=== PATIENT | male | born 1995 | race Caucasian/White ===

== ENCOUNTER 2017-12-15 11:06 | Emergency (ER) | payer OTHER, SELFPAY ==
[2017-12-15 11:18] VITALS: BP 104/48; PULSE 67; RESP 18; TEMP 36.8; O2SAT 96; BMI 23.0
--- NOTE | 2017-12-15 11:49 | HMH.EDUTC ---
[facility] [place] Disposition Clinical Impression: Sciatica of left side Disposition: Home, Self-Care Condition on Discharge: Good Instructions: DI for Chronic Pain -- Adult, Sciatica, DI for Back Pain With Sciatica, DI for Sciatica, Sciatica (Alternative Therapy) Additional Instructions: Take medication as prescribed Do stretches as demonstrated in [facility] today Follow up with family doctor if no improvement or worsening of symptoms in 12-48 hours Go straight to ER if you began having bowel or bladder issues Follow up with family doctor for referral to physical therapy if pain continues Prescriptions: Cyclobenzaprine HCl [Flexeril 10mg tablet] 10 mg PO TID PRN #15 tab PRN Reason: Muscle Pain Etodolac [Etodolac 200mg Cap] 200 mg PO Q6H PRN #20 cap PRN Reason: Moderate Pain Referrals: Teresa Cabezas MD [Primary Care Provider] - Forms: Work/School Release Time of Disposition: 12:04 Medical Decision Making - Medical Records Medical records reviewed: Yes: I reviewed the patient's medical records. - Eliseo Inquiry Pt receiving controlled substance: No Eliseo was queried for this patient: No Vital Signs: 12/15/17 11:18 Temperature 98.2 F Temperature Source Temporal Artery Scan Pulse Rate [Right] 67 Respiratory Rate 18 Blood Pressure [Right Arm] 104/48 Blood Pressure Mean [Right Arm] 66 Blood Pressure Source [Right Arm] Automatic Cuff Blood Pressure Position [Right Arm] Sitting 02 Sat by Pulse Oximetry 96 Oxygen Delivery Method Room Air [facility] [place] HPI - General Stated complaint: lower back pain Time Seen by Provider: 12/15/17 11:49 Mode of Arrival: Ambulatory Source of Information: Patient Limitations: No Limitations Description of Symptoms (Recalled from Triage Doc. by RN): BACK PAIN BEGAN FRIDAY, NO INJURY HEENT Symptoms (Recalled from RN notes): No Resp Symptoms (Recalled from RN notes): No Skin Symptoms (Recalled from RN notes): No MS Symptoms (Recalled from RN notes): Yes Functional Status (Recalled from RN notes): N - History of Present Illness Provider Complaint: Patient state that he has been having pain in his lower back that radiates into buttock area and down left leg State that he normally lifts weights but has not lifted all weekend since the pain started State that he has used heating pads, massage ball and rest but pain has not got any better State that pain is worsened when he moves his leg - Related Data Previous Rx's Medication Instructions Recorded Cyclobenzaprine HCl [Flexeril 10mg 10 mg PO TID PRN #15 tab 12/15/17 tablet] Etodolac [Etodolac 200mg Cap] 200 mg PO Q6H PRN #20 cap 12/15/17 Allergies Allergy/AdvReac Type Severity Reaction Status Date / Time No Known Allergies Allergy Verified 12/15/17 11:21 - Worker's Comp Is this a Worker's Comp case?: No [facility] History I have reviewed the patient's past medical history: Yes - Social History Alcohol Intake: never - Psychiatric History Expresses thoughts of harming self/others: None Suicide Plan Description: No Plan ROS Obtained: Yes All systems reviewed & no additional complaints - Musculoskeletal Musculoskeletal: Reports back pain, Reports other (Pain in left lower back that radiates down buttock area into leg) Physical Exam - General General appearance: alert, in no apparent distress - Respiratory Respiratory exam: Present: normal lung sounds bilaterally. Absent: respiratory distress - Cardiovascular Cardiovascular exam: Present: regular rate, normal rhythm. Absent: JVD - Back Exam Back exam: Present: normal inspection, sciatic notch tenderness (L), other Comment: Pain in left lower back area radiating down left buttock into leg consistant with that described with sciatica. Denies known injury state that he woke up with the pain on Friday and has tried heating pad, massage ball and rest but did not help State that pain is worsened when he moves his leg Denies having trouble with bowel or
--- NOTE | 2017-12-15 11:55 | ED_ITS ---
[facility] [place] Disposition Clinical Impression: Sciatica of left side Disposition: Home, Self-Care Condition on Discharge: Good Instructions: DI for Chronic Pain -- Adult, Sciatica, DI for Back Pain With Sciatica, DI for Sciatica, Sciatica (Alternative Therapy) Additional Instructions: Take medication as prescribed Do stretches as demonstrated in [facility] today Follow up with family doctor if no improvement or worsening of symptoms in 12- 48 hours Go straight to ER if you began having bowel or bladder issues Follow up with family doctor for referral to physical therapy if pain continues Prescriptions: Cyclobenzaprine HCl [Flexeril 10mg tablet] 10 mg PO TID PRN #15 tab PRN Reason: Muscle Pain Etodolac [Etodolac 200mg Cap] 200 mg PO Q6H PRN #20 cap PRN Reason: Moderate Pain Referrals: Teresa Cabezas MD [Primary Care Provider] - Forms: Work/School Release Time of Disposition: 12:04 Medical Decision Making - Medical Records Medical records reviewed: Yes: I reviewed the patient's medical records. - Eliseo Inquiry Pt receiving controlled substance: No Eliseo was queried for this patient: No Vital Signs: 12/15/17 11:18 Temperature 98.2 F Temperature Source Temporal Artery Scan Pulse Rate [Right] 67 Respiratory Rate 18 Blood Pressure [Right Arm] 104/48 Blood Pressure Mean [Right Arm] 66 Blood Pressure Source [Right Arm] Automatic Cuff Blood Pressure Position [Right Arm] Sitting 02 Sat by Pulse Oximetry 96 Oxygen Delivery Method Room Air [facility] [place] HPI - General Stated complaint: lower back pain Time Seen by Provider: 12/15/17 11:49 Mode of Arrival: Ambulatory Source of Information: Patient Limitations: No Limitations Description of Symptoms (Recalled from Triage Doc. by RN): BACK PAIN BEGAN FRIDAY, NO INJURY HEENT Symptoms (Recalled from RN notes): No Resp Symptoms (Recalled from RN notes): No Skin Symptoms (Recalled from RN notes): No MS Symptoms (Recalled from RN notes): Yes Functional Status (Recalled from RN notes): N - History of Present Illness Provider Complaint: Patient state that he has been having pain in his lower back that radiates into buttock area and down left leg State that he normally lifts weights but has not lifted all weekend since the pain started State that he has used heating pads, massage ball and rest but pain has not got any better State that pain is worsened when he moves his leg - Related Data Previous Rx's Medication Instructions Recorded Cyclobenzaprine HCl [Flexeril 10mg 10 mg PO TID PRN #15 tab 12/15/17 tablet] Etodolac [Etodolac 200mg Cap] 200 mg PO Q6H PRN #20 cap 12/15/17 Allergies Allergy/AdvReac Type Severity Reaction Status Date / Time No Known Allergies Allergy Verified 12/15/17 11:21 - Worker's Comp Is this a Worker's Comp case?: No [facility] History I have reviewed the patient's past medical history: Yes - Social History Alcohol Intake: never - Psychiatric History Expresses thoughts of harming self/others: None Suicide Plan Description: No Plan ROS Obtained: Yes All systems reviewed & no additional complaints - Musculoskeletal Musculoskeletal: Reports back pain, Reports other (Pain in left lower back that radiates down buttock area into leg) Physical Exam - General General appearance: alert, in no apparent distress - Respiratory
[2017-12-15 12:08] VITALS: BP 104/48; PULSE 67; RESP 18; TEMP 36.8
== END 2017-12-15 12:09 | disposition home or self-care (01) ==
PROVIDERS: Emergency Provider Nurse Practitioner; Family Provider Family Medicine; PCP Family Medicine
DX: M54.42 Lumbago with sciatica, left side (principal)
CPT/HCPCS: 96372; 99201

== ENCOUNTER 2020-06-27 09:53 | Emergency (ER) | payer BC, SELFPAY ==
[2020-06-27 10:07] VITALS: BP 121/71; PULSE 56; RESP 21; TEMP 36.8; O2SAT 98; BMI 22.4
--- NOTE | 2020-06-27 10:07 | XR_ITS ---
PROCEDURE: XR RIBS LT MIN 3V W CXR1V CLINICAL INDICATION: pain Left anterior rib pain COMPARISON: CR XR CHEST 2V from 09/25/2019 FINDINGS: Multiple views of the left ribs show no obvious fracture. No lytic or blastic change. Consider follow-up in 7-[address] with 3D reformats if pain persists Frontal view of the chest shows no acute finding IMPRESSION: No acute findings. Dictated by: Joey Bailey MD 06/27/2020 10:34 Joey Bailey MD in [place] 06/27/2020 10:34
--- NOTE | 2020-06-27 10:42 | HMH.EDUTC ---
[facility] – [place] Disposition Clinical Impression: Muscle strain of chest wall Qualifiers: Encounter type: initial encounter Qualified Code(s): S29.011A - Strain of muscle and tendon of front wall of thorax, initial encounter Disposition: Home, Self-Care Condition on Discharge: Good Instructions: Muscle Strain, DI for Muscle Strain, DI for Costochondritis, Costochondritis Additional Instructions: *Ibuprofen juvenal 6 hours with meal as needed for pain/inflammation *Not additional anti-inflammatory like motrin, aleve, advil with the above amount of ibuprofen. You can still take Tylenol every 4 hours as needed if you need something else for pain *Ice 20 minutes every 2 hours for the first 48 hours after the initial injury followed by moist heat every 20 minutes 3-4 times a day to affected area *Muscle relaxer as prescribed as needed for muscle spasms but remember, it WILL cause drowsiness You cannot take it and drive, operate machinery or care for small children. *Keep this area active, no movement leads to more stiffness, However take it easy and avoid heavy lifting pushing or pulling *Follow up with you family doctor if no improvement for further treatment Prescriptions: methylPREDNISolone [Medrol 4mg tab] 4 mg PO DIRECTED #21 tab Transmission Status: Pending to [facility] methocarbamoL [Methocarbamol 500mg Tablet] 500 mg PO BID PRN #10 tab PRN Reason: Muscle Spasm Transmission Status: Pending to [facility] Referrals: Ashish Lo MD [Primary Care Provider] - As needed Forms: Work/School Release Time of Disposition: 10:51 Medical Decision Making - Eliseo Inquiry Pt receiving controlled substance: No Eliseo was queried for this patient: No Vital Signs: 06/27/20 10:07 Temperature 98.2 F Temperature Source Oral Pulse Rate [Right Brachial] 56 L Respiratory Rate 21 Blood Pressure [Right Arm] 121/71 Blood Pressure Mean [Right Arm] 87 Blood Pressure Source [Right Arm] Automatic Cuff Blood Pressure Position [Right Arm] Sitting 02 Sat by Pulse Oximetry 98 Oxygen Delivery Method Room Air - Radiology Data #1 Image(s): Chest Image Reviewed: Yes I have reviewed radiologist's interpretation IMPRESSION: No acute findings. [facility] [place] HPI - General Stated complaint: left chest pain hurts when cough Time Seen by Provider: 09/29/20 10:10 Mode of Arrival: Ambulatory Source of Information: Patient Limitations: No Limitations Description of Symptoms (Recalled from Triage Doc. by RN): PATIENT C/O LEFT-SIDED RIB PAIN WHEN STRETCHING, SNEEZING, AND LYING DOWN. 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 States that he has been having pain in his left rib area under his arm when he moves, sneezes or lays down States that it feels like muscle spasms or pleurisy again States that he has not had any fever, chills or body aches and not feeling sick States that feels like he may have pulled something - Related Data Previous Rx's Medication Instructions Recorded methocarbamoL [Methocarbamol 500mg 500 mg PO BID PRN #10 tab 06/27/20 Tablet] methylPREDNISolone [Medrol 4mg 4 mg PO DIRECTED #21 tab 06/27/20 tab] Allergies Allergy/AdvReac Type Severity Reaction Status Date / Time bee pollen Allergy Verified 11/23/19 09:10 ondansetron AdvReac Mild Verified 11/23/19 09:10 [From Zofran (as hydrochloride)] - Worker's Comp Is this a Worker's Comp case?: No H History - Hepatitis A Screen Drug use history?: No High risk sexual behaviors?: No History of sexually transmitted infect
[2020-06-27 10:56] VITALS: BP 121/71; PULSE 56; RESP 21; TEMP 36.8; O2SAT 98
== END 2020-06-27 10:58 | disposition home or self-care (01) ==
PROVIDERS: Emergency Provider Nurse Practitioner; PCP Emergency Medicine
DX: S29.011A Strain of muscle and tendon of front wall of thorax, initial encounter (principal); X50.3XXA Overexertion from repetitive movements, initial encounter; Y92.89 Other specified places as the place of occurrence of the external cause; G43.709 Chronic migraine without aura, not intractable, without status migrainosus
CPT/HCPCS: 71101; 99201

== ENCOUNTER 2020-11-06 10:27 | Emergency (ER) | payer BC, SELFPAY ==
[2020-11-06 10:41] VITALS: BP 127/76; PULSE 64; RESP 16; TEMP 36.6; O2SAT 100; BMI 26.5
--- NOTE | 2020-11-06 10:45 | HMH.EDUTC ---
[facility] [place] Disposition Clinical Impression: Exposure to COVID-19 virus Disposition: Home, Self-Care Condition on Discharge: Good Instructions: Preventing the Spread of Coronavirus Discharge Instructions Additional Instructions: Drink plenty of fluids. Take tylenol for pain or fever. Return if you begin to have difficulty breathing. Follow up with your regular doctor. GO TO THE ER FOR ANY WORSENING SYMPTOMS Prescriptions: Ondansetron [Zofran 4mg ODT] 4 mg PO Q8HP PRN #12 tab.rapdis PRN Reason: Nausea Transmission Status: Received by [facility] Referrals: Ashish Lo MD [Primary Care Provider] - Time of Disposition: 10:49 Medical Decision Making - Medical Records Medical records reviewed: No: I reviewed the patient's medical records. - Eliseo Inquiry Pt receiving controlled substance: No Vital Signs: 11/06/20 10:41 11/06/20 10:57 Temperature 97.8 F 97.4 F L Temperature Source Oral Tympanic Pulse Rate 59 L Pulse Rate [Right] 64 Respiratory Rate 16 16 Blood Pressure 122/69 Blood Pressure [Right Arm] 127/76 Blood Pressure Mean [Right Arm] 93 Blood Pressure Source [Right Arm] Automatic Cuff Blood Pressure Position [Right Arm] Sitting 02 Sat by Pulse Oximetry 100 Oxygen Delivery Method Room Air [facility] [place] HPI - General Stated complaint: wants Covid test Time Seen by Provider: 11/06/20 10:45 - History of Present Illness Provider Complaint: He states that he was exposed to covid-19 last week at his job. He denies any symptoms so far. - Related Data Previous Rx's Medication Instructions Recorded methocarbamoL [Methocarbamol 500mg 500 mg PO BID PRN #10 tab 06/27/20 Tablet] methylPREDNISolone [Medrol 4mg 4 mg PO DIRECTED #21 tab 06/27/20 tab] Ondansetron [Zofran 4mg ODT] 4 mg PO Q8HP PRN #12 tab.rapdis 11/06/20 Allergies Allergy/AdvReac Type Severity Reaction Status Date / Time bee pollen Allergy Verified 11/06/20 10:46 ondansetron AdvReac Mild Verified 11/06/20 10:46 [From Zofran (as hydrochloride)] [facility] History - Hepatitis A Screen Attestation statement:: This patient has been screened for Hepatitis A risk factors. I have reviewed the patient's past medical history: Yes Medical History: Reports:: Migraine Other Medical History: Reports: Other Laterality Cases: Bilateral: Tonsillectomy Other Surgeries: Yes: No Previous Surgery Amputation: No Fractures: No - Social History Smoking Status: Never smoker Alcohol Intake: never Substance Use Type: denies use Occupational Status: other Housing: house Household Members: family Family Hx:: No significant family history ROS Obtained: Yes All systems reviewed & no additional complaints - Constitutional Constitutional: Reports system reviewed and no additional complaints, except as docu - Eyes Eyes: Reports system reviewed and no additional complaints, except as docu - ENT Ears, Nose, Mouth, and Throat: Reports system reviewed and no additional complaints, except as docu - Cardiovascular Cardiovascular: Reports system reviewed and no additional complaints, except as docu - Respiratory Respiratory: Reports system reviewed and no additional complaints, except as docu - Gastrointestinal Gastrointestingal: Reports: system reviewed and no additional complaints, except as docu Physical Exam - General General appearance: alert, in no apparent distress - Head Head exam: atraumatic, normocephalic, normal inspection - Eye Eye exam: Present: normal appearance, PERRL, EOMI - ENT ENT exam: Present: normal exam, normal oropharynx, mucous membranes moist, TM's normal bilaterally, normal external ear exam - Neck Neck exam: Present: normal inspection, full ROM, trachea midline. Absent: meningismus, lymphadenopathy - Chest Chest inspection: Present: normal inspection, symmetric chest wall rise. Absent: tenderness - Respiratory Respiratory exam: Pres
[2020-11-06 10:57] VITALS: BP 122/69; PULSE 59; RESP 16; TEMP 36.3
== END 2020-11-06 10:57 | disposition home or self-care (01) ==
PROVIDERS: Emergency Provider Nurse Practitioner Family; PCP Emergency Medicine
DX: Z20.822 Contact with and (suspected) exposure to COVID-19 (principal); G43.709 Chronic migraine without aura, not intractable, without status migrainosus
CPT/HCPCS: 99202; G0463; U0003

== ENCOUNTER 2021-03-02 12:46 | Emergency (ER) | payer SELFPAY ==
[2021-03-02 12:46] VITALS: BP 116/94; PULSE 87; RESP 18; TEMP 36.6; O2SAT 99; BMI 27.1
--- NOTE | 2021-03-02 13:05 | HMH.EDUTC ---
[facility] [place] Disposition Clinical Impression: Hiccups Disposition: Home, Self-Care Condition on Discharge: Good Instructions: DI for Hiccups, Hiccups, True or False: Some Hiccup Remedies Actually Work Additional Instructions: if symptoms do not improve or become worse return or be seen in ed follow up with pcp meds as ordered Prescriptions: Metoclopramide HCl [Reglan 10mg Tab] 10 mg PO TID 5 Days #15 tab Transmission Status: Pending to [facility] Referrals: Ashish Lo MD [Primary Care Provider] - Time of Disposition: 13:19 Medical Decision Making - Eliseo Inquiry Pt receiving controlled substance: No Vital Signs: 03/02/21 12:46 Temperature 97.9 F Temperature Source Oral Pulse Rate [Right Brachial] 87 Respiratory Rate 18 Blood Pressure [Right Arm] 116/94 H Blood Pressure Mean [Right Arm] 101 Blood Pressure Source [Right Arm] Automatic Cuff Blood Pressure Position [Right Arm] Sitting 02 Sat by Pulse Oximetry 99 Oxygen Delivery Method Room Air [facility] [place] HPI - General Chief complaint: Urgent [facility] Stated complaint: hiccups for 1 1/2 days, pain in diaphram area Time Seen by Provider: 03/02/21 13:05 Mode of Arrival: Ambulatory Source of Information: Patient Limitations: No Limitations Description of Symptoms (Recalled from Triage Doc. by RN): PATIENT C/O HICCUPS FOR 1.5 DAYS. STATES HE HAS TRIED EVERY REMEDY HE KNOWS OF BUT THEY ARE NOT HELPING. C/O SORE DIAPHRAGM AREA FROM HICCUPS HEENT Symptoms (Recalled from RN notes): No Resp Symptoms (Recalled from RN notes): No Skin Symptoms (Recalled from RN notes): No MS Symptoms (Recalled from RN notes): No Functional Status (Recalled from RN notes): WNL - History of Present Illness Provider Complaint: 25 yr old male presents for hicupps for a day and half. pt states he did sleep for 4 hours but as soon as he woke up they started again. pt states he has tried every home remidy but nothing has helped. pt states he is eating and drinking fine and no pain,only muscle pain in ribs from freq hicupps. - Related Data Previous Rx's Medication Instructions Recorded Metoclopramide HCl [Reglan 10mg 10 mg PO TID 5 Days #15 tab 03/02/21 Tab] Allergies Allergy/AdvReac Type Severity Reaction Status Date / Time bee pollen Allergy Verified 11/06/20 10:46 ondansetron AdvReac Mild Verified 11/06/20 10:46 [From Zofran (as hydrochloride)] - Worker's Comp Is this a Worker's Comp case?: No [facility] History - Hepatitis A Screen Drug use history?: No High risk sexual behaviors?: No History of sexually transmitted infection?: No Currently employed?: No Childcare worker?: No Do you have indoor plumbing?: Yes Do you have electricity?: Yes Attestation statement:: This patient has been screened for Hepatitis A risk factors. I have reviewed the patient's past medical history: Yes Medical History: Reports:: Migraine Other Medical History: Reports: Other Laterality Cases: Bilateral: Tonsillectomy Other Surgeries: Yes: No Previous Surgery Amputation: No Fractures: No - Social History Smoking Status: Never smoker Alcohol Intake: never Substance Use Type: denies use Occupational Status: other Housing: house Household Members: family Family Hx:: No significant family history ROS Obtained: Yes Systems reviewed as appropriate & no additional complaints - Constitutional Constitutional: Reports system reviewed and no additional complaints, except as docu, Denies body ache - Eyes Eyes: Reports system reviewed and no additional complaints, except as docu, Denies blurry vision - ENT Ears, Nose, Mouth, and Throat: Reports system reviewed and no additional complaints, except as docu, Denies sore throat - Cardiovascular Cardiovascular: Reports system reviewed and no additional complaints, except as docu, Denies chest pain, Denies chest pain at rest, Denies chest pain with activity, Denies leg pain with activity - Respirat
[2021-03-02 13:16] VITALS: BP 116/94; PULSE 87; RESP 18; TEMP 36.6; O2SAT 99
== END 2021-03-02 14:48 | disposition home or self-care (01) ==
PROVIDERS: Emergency Provider Nurse Practitioner Family; PCP Emergency Medicine
DX: R06.6 Hiccough (principal); R07.81 Pleurodynia
CPT/HCPCS: 99202; G0463

== ENCOUNTER → 2021-10-03 11:33 | Outpatient (CLI) | payer BC, SELFPAY | PROVIDERS: PCP Emergency Medicine; Visit Provider Nurse Practitioner | DX: U07.1 COVID-19 (principal) | CPT/HCPCS: C9803; U0003; U0005 ==

== ENCOUNTER 2021-12-12 14:35 | Emergency (ER) | payer BC, SELFPAY ==
[2021-12-12 14:36] VITALS: BP 127/71; PULSE 83; RESP 16; TEMP 37.2; O2SAT 98; BMI 23.6
--- NOTE | 2021-12-12 14:48 | HMH.EDGENADL ---
[facility] Disposition Clinical Impression: Gastroenteritis Disposition: Home, Self-Care Condition on Discharge: Good Instructions: DI for Viral Gastroenteritis -- Adult Additional Instructions: Zofran as needed for nausea and vomiting. Rest and drink plenty of fluids. Tylenol as needed for any fever. Additional instructions for VOMITING/DIARRHEA: See your physician as soon as possible for further evaluation. Return immediately if severe abdominal pain, uncontrollable vomiting, shortness of breath, fever, vomiting of blood or abdominal distention. Prescriptions: Ondansetron [Zofran 4mg ODT] 4 mg PO TIDP PRN #10 tab PRN Reason: Nausea And Vomiting Transmission Status: Pending to [facility] Referrals: Ashish Lo MD [Primary Care Provider] - Forms: Work/School Release - Critical Care Critical Care Time: No Attestation: On 12/12/21, the high probability of a clinically significant, sudden or life threatening deterioration of the following system(s) required my full and direct attention, intervention and personal management. The time I documented below is in addition to time spent performing reported procedures but includes the following listed in this critical care notation. Medical Decision Making - Eliseo Inquiry Pt receiving controlled substance: No Vital Signs: 12/12/21 14:36 12/12/21 15:29 12/12/21 15:30 Temperature 98.9 F Temperature Source Oral Pulse Rate 81 76 Pulse Rate [Right Radial] 83 Respiratory Rate 16 18 Blood Pressure 124/66 131/73 Blood Pressure [Right Arm] 127/71 Blood Pressure Mean 84 Blood Pressure Mean [Right Arm] 89 Blood Pressure Source [Right Arm] Automatic Cuff Blood Pressure Position [Right Arm] Sitting 02 Sat by Pulse Oximetry 98 99 97 Oxygen Delivery Method Room Air - Lab Data Lab Results 12/12/21 14:47: WBC 8.7, RBC 5.53, Hgb 16.7, Hct 46.6, MCV 84.2, MCH 30.2, MCHC 35.9 H, RDW 13.2, Plt Count 256, MPV 8.0, Neut % (Auto) 85.0 H, Lymph % (Auto) 8.5 L, Sherman % (Auto) 4.9, Eos % (Auto) 0.9, Baso % (Auto) 0.7, Neut # (Auto) 7.4, Lymph # (Auto) 0.8, Sherman # (Auto) 0.4, Eos # (Auto) 0.1, Baso # (Auto) 0.1, Total Counted 100, Neutrophils % (Manual) 82 H, Lymphocytes % (Manual) 14, Monocytes % (Manual) 3, Eosinophils % (Manual) 1, Platelet Estimate Normal 12/12/21 14:47: Sodium 135 L, Potassium 3.9, Chloride 103, Carbon Dioxide 25, Anion Gap 10.9, BUN 16, Creatinine 1.20, Estimated Creat Clear 98, Estimated GFR 73, Est GFR ( Amer) 88, Glucose 99, Calcium 8.3 L, Total Bilirubin 1.7 H, AST 31, ALT 34, Alkaline Phosphatase 89, Total Protein 7.3, Albumin 4.5, Globulin 2.8, Albumin/Globulin Ratio 1.6 12/12/21 15:47: SARS-CoV-2 (PCR) Not detected, Influenza A Untype (PCR) Not detected, Influenza Type B (PCR) Not detected 12/12/21 16:34: Urine Color Smita, Urine Appearance Clear, Urine pH 6.0, Ur Specific Roe 1.025, Urine Protein Negative, Urine Glucose (UA) Negative, Urine Ketones 1+, Urine Blood 1+, Urine Nitrate Negative, Urine Bilirubin 1+ A, Urine Urobilinogen 1.0, Ur Leukocyte Esterase Negative, Urine RBC 5-10, Urine WBC None, Ur Squamous Epith Cells None, Urine Bacteria None Result diagrams: 12/12/21 14:47 12/12/21 14:47 Orders (Tests/Meds): ED MEDICATIONS Generic Name Dose Route Start Last Admin Trade Name Freq PRN Reason Stop Dose Admin Sodium Chloride 10 ml 12/12/21 15:01 Sodium Chloride 0.9% 10ml Flush Syringe IV 01/11/22 15:00 NEEDED PRN Maintain IV Site Discontinued Medications Generic Name Dose Route Start Last Admin Trade Name Freq PRN Reason Stop Dose Admin Sodium Chloride 1,000 mls @ 999 mls/hr 12/12/21 15:15 12/12/21 15:04 Sod Chlor 0.9% 1000ml Bag IV 12/12/21 16:15 999 mls/hr .Q1H1M MARTHA Administration Ondansetron HCl 4 mg 12/12/21 15:01 12/12/21 15:03 Ondansetron 4mg/2ml Vial IV 12/12/21 15:02 4 mg ONCE ONE Administration ORDERS Category Date Time Status D
[2021-12-12 15:10] LABS: Chloride 103 mmol/L (98-107); Potassium 3.9 mmoL/L (3.5-5.1); Sodium 135 mmol/L (136-145)
[2021-12-12 15:12] LABS: Basophils # 0.1 K/mm3 (0-0.2); Basophils % 0.7 % (0.1-2.0); Eosinophils # 0.1 K/mm3 (0.0-0.4); Eosinophils % 0.9 % (0.1-12.0); Hematocrit 46.6 % (42.0-52.0); Hemoglobin 16.7 g/dL (14.1-18.0); Lymphocytes # 0.8 K/mm3 (0.7-4.5); Lymphocytes % 8.5 % (10-50); Mean Corpuscular HGB Conc 35.9 g/dL (31.8-35.4); Mean Corpuscular Hemoglobin 30.2 pg (27.0-31.2); Mean Corpuscular Volume 84.2 fl (80-94); Monocytes # 0.4 K/mm3 (0.1-1.0); Monocytes % 4.9 % (1.7-9.3); Neutrophils # 7.4 K/mm3 (1.8-7.8); Platelet Count 256 K/mm3 (142-424); Red Blood Count 5.53 M/mm3 (4.60-6.20); Red Cell Distribution Width 13.2 % (11.5-17.5); White Blood Count 8.7 K/mm3 (4.8-10.8)
[2021-12-12 15:13] LABS: Alanine Aminotransferase 34 U/L (12-78); Albumin Level 4.5 g/dl (3.5-5.0); Albumin/Globulin Ratio 1.6 (1.1-1.8); Alkaline Phosphatase 89 U/L (38-126); Anion Gap 10.9 mEq/L (5-15); Aspartate Amino Transferase 31 U/L (17-59); Bilirubin,Total 1.7 mg/dl (0.2-1.3); Blood Urea Nitrogen 16 mg/dl (9-20); Carbon Dioxide 25 mmol/L (22.0-30.0); Creatinine Clearance Estimated 98 mL/min (50-200); Estimated Glomerular Filt Rate 73 ml/min (>60); GFR (African American) 88 ML/MIN (>60); Globulin 2.8 g/dL (1.3-3.2); Total Protein,Serum 7.3 g/dl (6.3-8.2)
[2021-12-12 15:14] LABS: Calcium 8.3 mg/dl (8.4-10.2); Glucose 99 mg/dl (74-100)
[2021-12-12 15:29] VITALS: BP 124/66; PULSE 81; RESP 18; O2SAT 99
[2021-12-12 15:30] VITALS: BP 131/73; PULSE 76; O2SAT 97
--- NOTE | 2021-12-12 15:38 | PC.NURSE ---
Checked on pt, states he is doing better
[2021-12-12 15:41] LABS: MANUAL DIFFERENTIAL MANUAL DIFFERENTIAL (MANUAL DIFF)
[2021-12-12 15:54] LABS: Coronavirus 19, PCR Not Detected (NotDetected); Influenza A, PCR Not Detected (NotDetected); Influenza B, PCR Not Detected (NotDetected)
[2021-12-12 16:23] LABS: Eosinophils % 1 % (0-3); Lymphocytes % 14 % (10-50); Monocytes % 3 % (2-9); Neutrophils % 82 % (42-76); Platelet Estimate Normal; Total Cells Counted 100
[2021-12-12 16:36] LABS: Microscopic, Urine URINE MICROSCOPIC (MICROSCOPIC)
[2021-12-12 16:43] LABS: Appearance,Urine CLEAR (Clear); Blood, Urine 1+ (Negative); Glucose,Urine (UA) Negative (Negative); Ketones,Urine 1+ (Negative); Leukocyte Esterase,Urine Negative (Negative); Nitrate,Urine Negative (Negative); Protein,Urine Negative (Negative); Specific Gravity, Urine 1.025 (1.005-1.030)
[2021-12-12 17:15] LABS: Bilirubin,Urine 1+ (Negative); Color,Urine AMBER (Yellow)
[2021-12-12 17:58] VITALS: BP 107/56; PULSE 88; RESP 18; TEMP 37.2; O2SAT 96
== END 2021-12-12 18:00 | disposition home or self-care (01) ==
PROVIDERS: Emergency Provider Emergency Medicine; PCP Emergency Medicine
DX: K52.9 Noninfective gastroenteritis and colitis, unspecified (principal); G43.709 Chronic migraine without aura, not intractable, without status migrainosus
CPT/HCPCS: 80053; 81001; 85007; 85025; 96365; 99283; C9803; J2405; U0003; U0005

== ENCOUNTER 2023-11-19 06:49 | Outpatient (CLI) | payer BC, SELFPAY | END 2023-11-19 23:59 | LOC: LAB.DROPOF 11-24 06:50 | PROVIDERS: PCP Family Medicine; Visit Provider Family Medicine | DX: R07.9 Chest pain, unspecified (principal) | CPT/HCPCS: 80053; 80061; 82306; 82607; 84403; 84443; 84484; 85025 ==

== ENCOUNTER 2023-11-19 16:27 | Outpatient (CLI) | payer BC, SELFPAY ==
[2023-11-19 18:48] LABS: Basophils # 0.1 K/mm3 (0-0.2); Basophils % 0.5 % (0.1-2.0); Eosinophils # 0.5 K/mm3 (0.0-0.4); Eosinophils % 5.5 % (0.1-12.0); Hematocrit 50.1 % (42.0-52.0); Hemoglobin 17.1 g/dL (14.1-18.0); Lymphocytes # 2.4 K/mm3 (0.7-4.5); Lymphocytes % 24.1 % (10-50); Mean Corpuscular Hemoglobin 31.4 pg (27.0-31.2); Mean Corpuscular Volume 92.1 fl (80-94); Mean Platelet Volume 8.5 fl (7.4-10.4); Monocytes # 0.7 K/mm3 (0.1-1.0); Monocytes % 6.6 % (1.7-9.3); Neutrophils # 6.3 K/mm3 (1.8-7.8); Neutrophils % 63.4 % (37.0-80.0); Platelet Count 261 K/mm3 (142-424); Red Blood Count 5.44 M/mm3 (4.60-6.20); White Blood Count 9.9 K/mm3 (4.8-10.8)
[2023-11-19 19:35] LABS: Alanine Aminotransferase 26 U/L (12-78); Albumin Level 4.7 g/dl (3.5-5.0); Alkaline Phosphatase 69 U/L (38-126); Anion Gap 11.8 mEq/L (5-15); Aspartate Amino Transferase 29 U/L (17-59); Blood Urea Nitrogen 16 mg/dl (9-20); Calcium 9.2 mg/dl (8.4-10.2); Carbon Dioxide 33 mmol/L (22.0-30.0); Chloride 100 mmol/L (98-107); Chol/HDL Ratio 5.9 (1-3.5); Cholesterol 160 mg/dl (140-200); Estimated Glomerular Filt Rate 72 ml/min (>60); GFR (African American) 87 ML/MIN (>60); Globulin 2.4 g/dL (1.3-3.2); Glucose 74 mg/dl (74-100); HDL Cholesterol 27 mg/dl (40-60); Potassium 3.8 mmoL/L (3.5-5.1); Sodium 141 mmol/L (136-145); Total Protein,Serum 7.1 g/dl (6.3-8.2); Triglycerides 242 mg/dl (30-150); VLDL Cholesterol 48 mg/dL (0-40)
[2023-11-19 19:46] LABS: Direct LDL Cholesterol 91.12 mg/dL (100-129)
[2023-11-19 19:50] LABS: Troponin I < 0.01 ng/ml (0.00-0.034)
[2023-11-19 19:54] LABS: 25-OH Vitamin D, Total 37.2 ng/mL (30-100)
[2023-11-19 20:06] LABS: Thyroid Stimulating Hormone 1.46 uIU/mL (0.465-4.68)
[2023-11-19 20:25] LABS: Vitamin B12 452 pg/mL (239-931)
[2023-11-21 08:20] LABS: Testosterone,Total >1500 ng/dL (264-916)
== END 2023-11-19 23:59 ==
PROVIDERS: PCP Family Medicine; Visit Provider Family Medicine
DX: R07.9 Chest pain, unspecified (principal)
CPT/HCPCS: 80053; 80061; 82306; 82607; 84403; 84443; 84484; 85025; 93270